=== PATIENT | female | born 1935 | race Caucasian/White ===

== ENCOUNTER 2017-10-21 03:26 | Emergency (ER) | payer MEDICARE, BC ==
--- NOTE | 2017-10-21 03:54 | ERNOTE ---
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 acetaminophen [From Vicodin] Adverse Reaction (Mild, Verified 09/22/17 19:34) BP calcium [Calcium] Adverse Reaction (Mild, Verified 09/22/17 19:34) Intolerant cefdinir [Cefdinir] Adverse Reaction (Mild, Verified 09/22/17 19:34) Intolerant cephalexin [Cephalexin] Adverse Reaction (Mild, Verified 09/22/17 19:34) Intolerant clarithromycin Adverse Reaction (Mild, Verified 09/22/17 19:34) heartburn codeine [Codeine] Adverse Reaction (Mild, Verified 09/22/17 19:34) rash, itching doxycycline Adverse Reaction (Mild, Verified 09/22/17 19:34) nausea, dizziness erythromycin base [Erythromycin Base] Adverse Reaction (Mild, Verified 09/22/17 19:34) GI upset famotidine [From Pepcid] Adverse Reaction (Mild, Verified 09/22/17 19:34) Headache hydrocodone bitartrate [From Vicodin] Adverse Reaction (Mild, Verified 09/22/17 19:34) rash, low bp metoclopramide Adverse Reaction (Mild, Verified 09/22/17 19:34) Vertigo oxaprozin [Oxaprozin] Adverse Reaction (Mild, Verified 09/22/17 19:34) sick stomach oxybutynin chloride [From Ditropan] Adverse Reaction (Mild, Verified 09/22/17 19 :34) Headache Penicillins Adverse Reaction (Mild, Verified 09/22/17 19:34) rash salmeterol xinafoate [From Serevent Diskus] Adverse Reaction (Mild, Verified 19:34) foot cramps Sulfa (Sulfonamide Antibiotics) [Sulfa(Sulfonamide Antibiotics)] Adverse Reaction (Mild, Verified 09/22/17 19:34) rash sulfamethoxazole [From Septra] Adverse Reaction (Mild, Verified 09/22/17 19:34) rash trimethoprim [From Septra] Adverse Reaction (Mild, Verified 09/22/17 19:34) rash NSAIDS (Non-Steroidal Anti-Inflamma Adverse Reaction (Unknown, Verified 19:34) metoclopramide HCl [From Reglan] Adverse Reaction (Verified 09/22/17 19:34) Home Medications: HOME MEDICATIONS Acetaminophen [Tylenol Extra Strength] 1,000 mg PO TID PRN 02/24/13 [Last Taken Unknown] Budesonide [Pulmicort Respules] 1 vial NEB BID 02/24/13 [Last Taken Unknown] Flecainide Acetate [Tambocor] 25 mg PO BID 02/24/13 [Last Taken Unknown] Levothyroxine Sodium [Synthroid] 100 mcg PO DAILY 02/24/13 [Last Taken Unknown] Multivitamin [Multiple Vitamins] 1 each PO DAILY 02/24/13 [Last Taken Unknown] Nitroglycerin 0.4 mg SL [id number] PRN 02/24/13 [Last Taken Unknown] Sennosides [Senokot] 8.6 mg PO BID PRN 02/24/13 [Last Taken Unknown] Alendronate Sodium [Fosamax] 70 mg PO Q7D 12/20/13 [Last Taken Unknown] Calcium Carbonate/Vitamin D3 [Calcium 600 + Vit D 400 Tablet] 1 each PO DAILY [Last Taken Unknown] Cranberry Fruit [Cranberry] 500 mg PO DAILY 10/08/14 [Last Taken Unknown] Aspirin [Aspirin Enteric Coated] 81 mg PO DAILY 02/25/16 [Last Taken Unknown] Atorvastatin Calcium [Lipitor] 10 mg PO DAILY 02/25/16 [Last Taken Unknown] Clobetasol Propionate 15 gm TP BID PRN 04/22/16 [Last Taken Unknown] Narrative: Patient has a history of intermittent a-fib treated with flecainide. The dose has been decreased from 100mg to 50mg and about a month ago to 25mg bid. About two hours prior to coming here she started to have palpitations while trying to go to sleep, denies any chest pain or shortness of breath. She was diagnosed with influenza about a month ago, has recovered from that Date (Duration): 10/21/17 Time (Timing): 01:30 Activities at Onset: rest Prior Chest Pain/Cardiac Workup: Reports: no prior cardiac workup Prior Treatment: Reports: recently seen Review of Systems - Review of Systems Constitutional: Present: recent illness. Absent: fever, chills EYE: Absent: vision changes ENT: Absent: nose congestion, nasal drainage, sore throat Respiratory: Absent: shortness of breath, cough Cardiology: Present: palpitations. Absent: chest pain Gastrointestinal/Abdominal: Absent: nausea, vomiting, abdominal pain Genitourinary: Present: no symptoms reported Musculoskeletal: Absent: back pain Neurological: Absent: headache, dizziness/light-headedness, weakness, numbness - Patient's Past Medical History Patient History - Medical: Anxiety, Depression, GERD, Hypothyroidism Patient History - Cardiac/Respiratory: Atrial Fibrillation, Other Patient History - Cancer: No Hx of Cancer Patient History - Surgical Procedures: Cataracts, Cholecystectomy, Colonoscopy, EGD, Hysterectomy, Pacemaker, T & A Patient History - Other: None - Social History Living Situations: alone Abuse History: No History of abuse Psych History: Hx of Anxiety, Hx of Depression Smoking Status: Former smoker Alcohol Use: none Drug Use: none - Immunizations Immunizations Up to Date: Yes Hx Pneumococcal Vaccination: Yes History of Influenza Vaccine: Yes Physical Exam - Physical Exam General Appearance: Present: wd/wn, alert, no apparent distress Head Exam: Present: normal inspection Ears, Nose, Throat: Present: normal pharynx Respiratory: Present: no respiratory distress, normal breath sounds, no accessory muscle use, lungs clear Cardiovascular/Chest: Present: no murmur, tachycardia, irregularly irregular Gastrointestinal/Abdominal: Present: nontender, nondistended, soft Extremity Exam: Present: no edema Neurological Exam: Present: alert, oriented, normal mood/affect Skin Exam: Present: normal color, warm/dry ED Progress - Results and Orders Patient's Lab Results:: I have reviewed the patient's lab results. - Vital Signs Patient's Vital Signs:: I have reviewed the patient's vital signs. Vital Signs: Vital Signs 10/21/17 03:26 Temperature 36.5 C Pulse Rate 134 H Respiratory 17 Rate Blood Pressure 131/74 O2 Sat by Pulse 95 Oximetry - EKG EKG: atrial fibrillation - with RVR, HR 122, other - no other acute changes except rhythm EKG read: Interp. by me - Progress/Reassessment Chief Complaint: Palpitations Progress Note-Subjective: 10/21/17 04:01 Patient's HR in 110-130's stable will give increased morning dose of flecainide now 10/21/17 05:23 patient is intermittently in sinus rhythm with HR in 80's 10/21/17 06:07 patient in SR in 70-80's discussed increased medication dose in the ER and need to lynda her insurance account assistant for further instruction Departure Clinical Impression: Atrial fibrillation with RVR - Departure Disposition: Home self-care Condition: Stable Instructions: Atrial Fibrillation, [id number] Additional Instructions: your were in atrial fibrillation when you came to the ER and were given 50mg of flecainide (1/2 a pill) call your insurance account assistant as soon as she office opened for further instruction for your medication dose Referrals: Donnie Mishra MD [Associate] -
[2017-10-21] MEDS ORDERED: FLECAINIDE ACETATE 100 MG TABLET ONE (04:02)
[2017-10-21] MEDS ORDERED: FLECAINIDE ACETATE 100 MG TABLET PO ONE (04:15)
[2017-10-21 04:16] LABS: Hematocrit 33.6 % (37.0-47.0); Hemoglobin 11.2 gm/dL (12.5-16.0); Mean Cell Volume 95.7 fl (78-100); Mean Corpuscular Hemoglobin 31.9 pg (27-31); Mean Corpuscular Hgb Conc 33.3 g/dl (32-36); Mean Platelet Volume 9.3 fl (6.0-9.5); Neutrophil # 1.9 K/mm3 (1.3-6.0); Neutrophil % 48.7 % (42-75.0); Platelet Count 220 K/mm3 (150-450); Red Blood Count 3.51 M/mm3 (4.2-5.4); White Blood Count 3.8 K/mm3 (4.0-10.5)
[2017-10-21 04:40] LABS: Troponin I Less than 0.017 ng/ml (0.00-0.10)
[2017-10-21 04:43] LABS: ALT 20 U/L (19-67); AST 18 U/L (0-48); Albumin * 2.9 gm/dl (3.4-5.0); Alkaline Phosphatase * 57 U/L (50-170); Anion Gap 9.4 mmol/L (6.8-13.8); BUN/Creatinine Ratio 16.5 (9.0-21.6); Bilirubin, Total 0.3 mg/dL (0.0-1.1); Blood Urea Nitrogen 18 mg/dL (3-23); Ca. Corrected For Albumin 9.1 mg/dL (8.4-10.2); Calcium * 8.5 mg/dL (7.9-10.9); Carbon Dioxide 31.2 mmol/L (24-32.6); Chloride 104 mmol/L (97-106); Glucose * 93 mg/dL (70-110); Potassium 3.6 mmol/L (3.4-4.6); Sodium 141 mmol/L (132-142); TSH * 1.266 uIU/mL (0.358-3.74); Total Protein 6.1 gm/dL (6.2-8.2)
[2017-10-21 05:51] VITALS: BP 113/67
== END 2017-10-21 06:07 | disposition home or self-care (01) ==
LOC: ER 03:26
DX: I48.91 Unspecified atrial fibrillation (principal); Z79.01 Long term (current) use of anticoagulants; F41.8 Other specified anxiety disorders; K21.9 Gastro-esophageal reflux disease without esophagitis; E03.9 Hypothyroidism, unspecified